=== PATIENT | male | born 1950 | race Caucasian/White ===

== ENCOUNTER 2016-12-18 21:59 | Observation (INO) | payer OTHER ==
[~2016-12-18] VITALS: Ht 170.2 cm; Wt 98.5 kg
[2016-12-18 22:56] LABS: HEMATOCRIT 45.4 % (38.0-50.0); MCH 29.5 PG (29.0-34.0); MCHC 33.9 G/DL (30.0-36.0); MEAN PLAT.VOLUME 10.1 uM^3 (9.0-12.4); PLATELET COUNT 221 K/uL (156-360); RBC DIS.WIDTH-CV 12.2 % (11.8-14.6); RBC DIS.WIDTH-SD 39.2 % (39-53); RED BLOOD COUNT 5.22 M/uL (4.00-5.50); WHITE BLOOD COUNT 9.1 K/uL (4.1-10.2)
[2016-12-18 23:07] LABS: CHLORIDE 104 mEq/L (99-109); POTASSIUM 4.7 mEq/L (3.7-5.4); SODIUM 140 mEq/L (136-147)
[2016-12-18 23:08] LABS: GLUCOSE 132 mg/dL (70-99)
[2016-12-18 23:10] LABS: ANION GAP 12 MEQ/L (2-14)
[2016-12-18 23:12] LABS: GFR ESTIMATE (CALCULATED) 54 mL/min/
[2016-12-18 23:13] LABS: UREA NITROGEN (BUN) 21 mg/dL (9-23)
[2016-12-18 23:17] LABS: TROP-I INTERPRETATION NEGATIVE; TROPONIN-I < 0.01 ng/mL (0.0-0.30)
[2016-12-18] MEDS ORDERED: ACCUPRIL40 MG PO (23:35)
[2016-12-18] MEDS ORDERED: FISH OIL 1,0001 EAC7 PO (23:36)
[2016-12-18] MEDS ORDERED: DYAZIDE, MA1 CAPSULE PO (23:36)
[2016-12-18] MEDS ORDERED: PEPCID AC10 MG PO (23:36)
[2016-12-18] MEDS ORDERED: TUMS500 MG PO (23:36)
[2016-12-18 23:45] LABS: TOTAL BILIRUBIN 0.4 mg/dL (0.0-1.0)
[2016-12-18 23:46] LABS: ALKALINE PHOSPHATASE 104 IU/L (3-129)
[2016-12-18 23:48] LABS: DIRECT BILIRUBIN 0.1 mg/dL (0.0-0.3)
[2016-12-18 23:49] LABS: LIPASE 23 U/L (1.0-51.0)
[2016-12-19 02:51] VITALS: BP 123/56
[2016-12-19 03:34] LABS: HDL CHOLESTEROL 50 MG/DL (Desirable>=40); LDL CHOLESTEROL 126 mg/dL (Desirable<100); NON-HDL CHOLESTEROL 171 mg/dL (Desirable<160); TOTAL CHOLESTEROL 221 mg/dL (Desirable<200); TRIGLYCERIDES 227 MG/DL (Normal: <150)
[2016-12-19 06:09] LABS: TROP-I INTERPRETATION NEGATIVE; TROPONIN-I < 0.01 ng/mL (0.0-0.30)
[2016-12-19 08:38] VITALS: BP 115/59
[2016-12-19 12:42] VITALS: BP 111/55
[2016-12-19 13:27] LABS: TROP-I INTERPRETATION NEGATIVE; TROPONIN-I < 0.01 ng/mL (0.0-0.30)
[2016-12-19 16:03] VITALS: BP 110/54
[2016-12-19] MEDS ORDERED: ASPIRIN81 M2 PO (17:15)
== END 2016-12-19 18:05 | disposition home or self-care (01) ==
LOC: EME 21:59 → EDOF 12-19 01:20 → 5WEST 12-19 01:20 → EDOF 12-19 01:20 → ENRESERV 12-19 01:23 → 5WEST 12-19 02:32
PROVIDERS: Emergency Medicine; Hospitalist
DX: R07.9 Chest pain, unspecified (principal); I10 Essential (primary) hypertension; E78.5 Hyperlipidemia, unspecified; E66.9 Obesity, unspecified; Z68.34 Body mass index [BMI] 34.0-34.9, adult; K80.20 Calculus of gallbladder without cholecystitis without obstruction; I44.7 Left bundle-branch block, unspecified; Z82.49 Family history of ischemic heart disease and other diseases of the circulatory system; Z88.8 Allergy status to other drugs, medicaments and biological substances
CPT/HCPCS: 71020; 71275; 78226; 80048; 80061; 80076; 83690; 83880; 84484; 85027; 93005; 93306; 99281; 99284; A9510; G0378; J1650; J2270; J2405

== ENCOUNTER 2017-02-06 05:22 | Day surgery (SDC) | payer OTHER ==
[~2017-02-06] VITALS: Ht 170.2 cm; Wt 97.5 kg
[~2017-02-06 05:22] MED LIST: ACCUPRIL40 MG PO; ASPIRIN81 M2 PO; COQ-10100 MG PO; DYAZIDE, MA1 CAPSULE PO; FISH OIL 1,0001 EAC7 PO; NATURAL LUTEIN20 MG PO; PEPCID AC10 MG PO; TUMS500 MG PO
[2017-02-06 06:24] VITALS: BP 137/64
[2017-02-06] MEDS ORDERED: PERCOCET 5/31 TABLET PO (10:14)
[2017-02-06] MEDS ORDERED: COLACE100 MG PO (10:14)
[2017-02-06 12:15] VITALS: BP 146/62
[2017-02-06 12:50] VITALS: BP 129/59
[2017-02-06 15:28] VITALS: BP 116/57
== END 2017-02-06 16:00 | disposition home or self-care (01) ==
LOC: SDC 05:22
PROC: 0FT44ZZ Resection of Gallbladder, Percutaneous Endoscopic Approach (ICD-10-PCS; principal; 2017-02-06)
DX: K80.10 Calculus of gallbladder with chronic cholecystitis without obstruction (principal); I10 Essential (primary) hypertension; K21.9 Gastro-esophageal reflux disease without esophagitis; G47.30 Sleep apnea, unspecified; Z79.82 Long term (current) use of aspirin
CPT/HCPCS: 88304; J0131; J0330; J1100; J1170; J2250; J2405; J2710; J3010